=== PATIENT | female | born 1955 | race Caucasian/White ===

== ENCOUNTER 2021-06-21 11:50 | Outpatient (CLI) | payer MEDICARE, OTHER | END 2021-06-21 11:51 | disposition home or self-care (01) | LOC: CSHCT 11:50 | PROVIDERS: ATTEND Student in an Organized Health Care Education/Training Program | DX: H93.A2 Pulsatile tinnitus, left ear (principal) | CPT/HCPCS: 70496; 70553; 82565 ==

== ENCOUNTER 2024-06-14 10:42 | Outpatient (CLI) | payer MEDICARE | END 2024-06-14 10:43 | disposition home or self-care (01) | LOC: CSHULT 10:42 | PROVIDERS: ATTEND Physician Assistant | DX: R10.2 Pelvic and perineal pain (principal); N83.292 Other ovarian cyst, left side | CPT/HCPCS: 76856 ==

== ENCOUNTER 2024-06-23 14:40 | Outpatient (CLI) | payer MEDICARE | END 2024-06-23 14:41 | disposition home or self-care (01) | LOC: CSHMAMMO 14:40 | PROVIDERS: ATTEND Physician Assistant | DX: Z78.0 Asymptomatic menopausal state (principal); M85.89 Other specified disorders of bone density and structure, multiple sites | CPT/HCPCS: 77063; 77067; 77080 ==

== ENCOUNTER 2024-07-08 08:29 | Outpatient (CLI) | payer MEDICARE | END 2024-07-08 08:30 | disposition home or self-care (01) | LOC: CSHMAMMO 08:29 | PROVIDERS: ATTEND Physician Assistant | DX: R92.8 Other abnormal and inconclusive findings on diagnostic imaging of breast (principal) | CPT/HCPCS: 77065; G0279 ==

== ENCOUNTER → 2024-07-19 | Day surgery (SDC) | payer MEDICARE, OTHER | LOC: CSHMAMMO 07:23 | PROVIDERS: ATTEND Physician Assistant | PROC: 0HBU3ZX Excision of Left Breast, Percutaneous Approach, Diagnostic (ICD-10-PCS; principal; 2024-07-19) | DX: N60.91 Unspecified benign mammary dysplasia of right breast (principal); R92.1 Mammographic calcification found on diagnostic imaging of breast | CPT/HCPCS: 19081; 76098; 88305 ==

== ENCOUNTER 2024-08-04 14:22 | Outpatient (CLI) | payer MEDICARE ==
[2024-08-04 15:32] LABS: Hematocrit 39.5 % (34.9-44.5); Mean Corpuscular HGB CONC 32.9 g/dL (32.0-36.0); Mean Corpuscular Hemoglobin 31.6 pg (27.0-33.0); Mean Corpuscular Volume 96.1 fL (81.6-98.3); Mean Platelet Volume 10.2 fL (7.4-10.4); Platelet Count 196 10x3/uL (150-450); RBC Distribution Width 11.9 % (11.5-14.5); Red Blood Cell (RBC) Count 4.11 10x6/uL (3.90-5.03); White Blood Cell (WBC) Count 4.7 10x3/uL (3.5-10.5)
[2024-08-04 15:48] LABS: Anion Gap 13 mmol/L (10-20); BUN (Urea Nitrogen) 9 mg/dL (9.8-20.1); Calc. Creatinine Clearance 0 mL/min (70-130); Calcium 9.8 mg/dL (7.8-10.44); Carbon Dioxide 29 mmol/L (23-31); Chloride 103 mmol/L (98-107); Estimated GFR 67; Glucose 130 mg/dL (80-115); Potassium 4.1 mmol/L (3.5-5.1); Sodium 141 mmol/L (136-145)
== END 2024-08-04 14:23 | disposition home or self-care (01) ==
LOC: CSHLAB 14:22
PROVIDERS: ATTEND Surgery
DX: Z01.818 Encounter for other preprocedural examination (principal); K40.90 Unilateral inguinal hernia, without obstruction or gangrene, not specified as recurrent
CPT/HCPCS: 80048; 85027; 93005; 93010

== ENCOUNTER 2024-08-11 05:56 | Day surgery (SDC) | payer MEDICARE ==
[2024-08-04 14:52] VITALS: BMI 24.7
[2024-08-11] MEDS ORDERED: CEFAZOLIN 2 GM VIAL ONE (08:24)
[2024-08-11] MEDS ORDERED: Bupivacaine HCl 0.5%/Epinephrine 1:200,000/PF 30 ml Vial ONE (08:24)
[2024-08-11] MEDS ORDERED: Dexamethasone 4 mg/ml Vial ONE (08:25)
[2024-08-11] MEDS ORDERED: Lidocaine 1% PF 5 ML VIAL ONE (08:25)
[2024-08-11] MEDS ORDERED: fentaNYL 50 mcg/mL 1 mL Vial ONE (08:25)
[2024-08-11] MEDS ORDERED: Ondansetron PF 4 MG/2 ML Vial ONE ×2 (08:25→10:23)
[2024-08-11] MEDS ORDERED: PROPOFOL 20 ML ONE (08:25)
[2024-08-11] MEDS ORDERED: Rocuronium Bromide 10 MG/ML (10ML VIAL) ONE (08:25)
[2024-08-11] MEDS ORDERED: SUGAMMADEX SODIUM 200 MG/2 ML VIAL ONE (09:31)
[2024-08-11] MEDS ORDERED: Acetaminophen 500 MG TAB ONE (10:53)
== END 2024-08-11 12:20 | disposition home or self-care (01) ==
LOC: CSHSDC 05:56
PROVIDERS: ATTEND Surgery
PROC: 0WUF4JZ Supplement Abdominal Wall with Synthetic Substitute, Percutaneous Endoscopic Approach (ICD-10-PCS; principal; 2024-08-11)
DX: K45.8 Other specified abdominal hernia without obstruction or gangrene (principal); N60.91 Unspecified benign mammary dysplasia of right breast; I10 Essential (primary) hypertension; I83.90 Asymptomatic varicose veins of unspecified lower extremity; M19.90 Unspecified osteoarthritis, unspecified site; Z78.0 Asymptomatic menopausal state; Z87.891 Personal history of nicotine dependence; Z88.5 Allergy status to narcotic agent; Z79.899 Other long term (current) drug therapy
CPT/HCPCS: 49659; C1781; J1100; J2405; J2704; J3010; S2900

== ENCOUNTER 2024-08-18 06:53 | Day surgery (SDC) | payer MEDICARE ==
[2024-08-17 11:29] VITALS: BMI 24.7
[2024-08-18] MEDS ORDERED: Bupivacaine HCl 0.5%/Epinephrine 1:200,000/PF 30 ml Vial ONE (09:01)
[2024-08-18] MEDS ORDERED: Fentanyl 250 MCG/5 ML VIAL ONE (10:41)
[2024-08-18] MEDS ORDERED: Lidocaine 1% PF 5 ML VIAL ONE (10:41)
[2024-08-18] MEDS ORDERED: PROPOFOL 20 ML ONE (10:41)
[2024-08-18] MEDS ORDERED: CEFAZOLIN 2 GM VIAL ONE (10:57)
[2024-08-18] MEDS ORDERED: ePHEDrine Sulfate 50 MG/10 ML VIAL ONE (11:17)
== END 2024-08-18 13:24 | disposition home or self-care (01) ==
LOC: CSHSDC 06:53
PROVIDERS: ATTEND Surgery
PROC: 0HBT0ZZ Excision of Right Breast, Open Approach (ICD-10-PCS; principal; 2024-08-18)
DX: N60.91 Unspecified benign mammary dysplasia of right breast (principal); N60.11 Diffuse cystic mastopathy of right breast; D05.01 Lobular carcinoma in situ of right breast; R92.1 Mammographic calcification found on diagnostic imaging of breast; J40 Bronchitis, not specified as acute or chronic; I10 Essential (primary) hypertension; M51.35 Other intervertebral disc degeneration, thoracolumbar region; M51.27 Other intervertebral disc displacement, lumbosacral region; Z87.891 Personal history of nicotine dependence; Z88.5 Allergy status to narcotic agent; Z79.899 Other long term (current) drug therapy; Z98.890 Other specified postprocedural states
CPT/HCPCS: 19281; 19301; 76098; C1713; J2704; J3010; 88307; 88341; 88342